=== PATIENT | male | born 1975 | race Caucasian/White ===

== ENCOUNTER → 2020-02-07 08:34 | Outpatient (CLI) | payer OTHER, SELFPAY ==
--- NOTE | ~2020-02-07 | MR_ITS ---
EXAMINATION: MR foot RT wo/w con DATE: 02/07/2020 09:45 INDICATION: Right foot osteomyelitis with open wound at the plantar aspect of the great toe. TECHNIQUE: Magnetic resonance imaging (MRI) of the right fore/mid foot was performed without and with 20 mL Multihance intravenous contrast. Sequences included sagittal T1-weighted FSE, sagittal fluid s ensitive FSE STIR, coronal PD-weighted FS FSE, coronal T1-weighted FSE, axial PD-weighted FS FSE, and axial PD-weighted FSE. COMPARISON: Radiographs dated 11/23/2019 FINDINGS: Bone alignment is normal. No fracture. 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 T here is a shallow skin ulceration overlying the medial plantar aspect of the base of the distal phala nx of the great toe. There appears to be subtle underlying cortical erosion with prominent surroundin g marrow edema and enhancement in the first distal phalanx suspicious for osteomyelitis. There is how ever no radiographic loss of T1 hyperintense marrow fat signal to more definitively suggest this. Lik mayela degenerative subarticular cystic change at the plantar/medial aspect of the head of the first pro ximal phalanx without surrounding abnormal marrow edema or enhancement to suggest osteomyelitis. Bone marrow signal otherwise normal throughout the remainder of the mid and forefoot. Physiologic amount fluid in the joint spaces. No abscess. IMPRESSION: 1. Marrow edema and enhancement at the first distal phalanx deep to a skin ulceration which could be either reactive or due to early osteomyelitis. Favor the latter given the degree of enhancement and s ignal changes and suggestion of a possible cortical erosion however there is no geographic loss of T1 marrow fat signal to more specifically suggest this and assessment for cortical erosion is more limi nessa than with radiographs or CT. Reviewed, dictated and finalized at location A. IMPRESSION: 1. Marrow edema and enhancement at the first distal phalanx deep to a skin ulce ration which could be either reactive or due to early osteomyelitis. Favor the latter given the degree of enhancement and signal changes and suggestion of a p ossible cortical erosion however there is no geographic loss of T1 marrow fat s ignal to more specifically suggest this and assessment for cortical erosion is more limited than with radiographs or CT.
[2020-02-07 09:04] LABS: Estimated Glomerular Filt Rate > 60
== END ==
PROVIDERS: Visit Provider Podiatrist Foot & Ankle Surgery
DX: M86.171 Other acute osteomyelitis, right ankle and foot (principal)
CPT/HCPCS: 36415; 73720; A9577